=== PATIENT | male | born 1990 | race Caucasian/White ===

== ENCOUNTER 2021-04-04 09:28 | Emergency (ER) | payer MEDICAID ==
[~2021-04-04] VITALS: Ht 177.8 cm; Wt 83.9 kg
[2021-04-04 09:37] VITALS: BP 116/79
[2021-04-04] MEDS ORDERED: METH4TAB1 PO (10:21)
[2021-04-04] MEDS ORDERED: FAMO20TA13 PO (10:23)
[2021-04-04 10:30] VITALS: BP 116/79
== END 2021-04-04 10:30 | disposition home or self-care (01) ==
LOC: MED 09:28
DX: R20.2 Paresthesia of skin (principal)
CPT/HCPCS: 99283